=== PATIENT | female | born 2000 | race Asian ===

== ENCOUNTER 2025-03-22 21:36 | Emergency (ER) | payer OTHER ==
[~2025-03-22] VITALS: Ht 154.9 cm; Wt 44.5 kg
[2025-03-22 21:42] VITALS: BP 119/87; PULSE 85; RESP 14; TEMP 98.2; O2SAT 98
[2025-03-22 22:28] LABS: APPEARANCE,URINE CLEAR (CLEAR); GLUCOSE, URINE (UA) NEGATIVE (NEGATIVE); LEUKOCYTE ESTERASE ,URINE MODERATE (NEGATIVE); NITRATE,URINE NEGATIVE (NEGATIVE); OCCULT BLOOD,URINE MODERATE (NEGATIVE); SPECIFIC GRAVITIY, URINE 1.014 (1.003-1.030)
[2025-03-22 22:50] LABS: SQUAMOUS EPITHELIAL CELL,UR Rare /LPF (None Seen)
[2025-03-23] MEDS ORDERED: CEPH-558 PO (00:04)
[2025-03-23] MEDS: CEPHALEXIN MONOHYDRATE 500 MG CAPSULE PO ONE (00:14)
== END 2025-03-23 00:31 | disposition home or self-care (01) ==
LOC: EMS 21:36
DX: N39.0 Urinary tract infection, site not specified (principal); R10.A1 Flank pain, right side
CPT/HCPCS: 81001; 84703; 87086; 99283

== ENCOUNTER 2025-04-06 21:12 | Emergency (ER) | payer OTHER ==
[~2025-04-06] VITALS: Ht 154.9 cm; Wt 44.5 kg
[~2025-04-06 21:12] MED LIST: CEPH-558 PO; SULF1TAB94 PO
[2025-04-06 21:22] VITALS: TEMP 98.9
[2025-04-06 21:56] LABS: APPEARANCE,URINE CLEAR (CLEAR); GLUCOSE, URINE (UA) NEGATIVE (NEGATIVE); LEUKOCYTE ESTERASE ,URINE SMALL (NEGATIVE); NITRATE,URINE NEGATIVE (NEGATIVE); OCCULT BLOOD,URINE NEGATIVE (NEGATIVE); SPECIFIC GRAVITIY, URINE 1.009 (1.003-1.030)
[2025-04-06 22:05] LABS: SQUAMOUS EPITHELIAL CELL,UR Moderate /LPF (None Seen)
[2025-04-06 22:19] LABS: PLATELET COUNT (AUTO) 154 K/uL (150-450); RED BLOOD CELL COUNT(AUTO) 4.38 MIL/uL (4.00-5.20); RED CELL DISTRIBUTION WIDTH 12.8 % (11.5-14.5); WHITE BLOOD COUNT (AUTO) 3.3 K/uL (4.5-11.0)
[2025-04-06 22:28] LABS: CALCIUM, TOTAL 8.8 mg/dL (8.8-10.5); CREATININE 0.97 mg/dL (0.60-1.30); GLOMERULAR FILTR. RATE CALC > 60 mL/min (>60); GLUCOSE,RANDOM 82 mg/dL (70-110); SODIUM SERUM 138 mmol/L (136-145); UREA NITROGEN, BLOOD 8 mg/dL (7-18)
[2025-04-06 22:38] LABS: ASPARTATE AMINOTRANSFERASE 34 U/L (15-37); HCG,QUANTITATIVE < 1 mIU/mL (0-6); TOTAL PROTEIN, SERUM 7.6 g/dL (6.4-8.2)
[2025-04-06 23:41] VITALS: BP 119/67; PULSE 75; RESP 16; O2SAT 100
[2025-04-07] MEDS ORDERED: LINE600T14 PO (00:37)
[2025-04-07] MEDS: LINEZOLID 600 MG TABLET PO ONE (00:57)
== END 2025-04-07 01:03 | disposition home or self-care (01) ==
LOC: EMS 21:13
DX: N39.0 Urinary tract infection, site not specified (principal); K59.00 Constipation, unspecified; T36.1X1A Poisoning by cephalosporins and other beta-lactam antibiotics, accidental (unintentional), initial encounter; D36.9 Benign neoplasm, unspecified site; Z79.899 Other long term (current) drug therapy; Y92.89 Other specified places as the place of occurrence of the external cause
CPT/HCPCS: 99284; 74176; 80053; 81001; 84702; 85025; 87086; 36415; J8540